=== PATIENT | female | born 1960 | race Caucasian/White ===

== ENCOUNTER 2024-12-20 19:21 | Emergency (ER) | payer MEDICARE, MEDICAID, SELFPAY ==
[2024-12-20] VITALS (15 sets, daily range): BP systolic 128–220; BP diastolic 46–107; PULSE 103–133; RESP 14–26; TEMP 38.5–39.8; O2SAT 95–100; BMI 34.7
--- NOTE | 2024-12-20 19:28 | XR_ITS ---
PROCEDURE INFORMATION: Exam: XR Chest Exam date and time: 12/20/2024 8:08 PM Age: 63 years old Clinical indication: Other: Sepsis TECHNIQUE: Imaging protocol: Radiologic exam of the chest. Views: 1 view. COMPARISON: No relevant prior studies available. FINDINGS: Lungs: Lung volumes are mildly diminished. No gradient increased interstitial markings are age-indeterminate without prior studies for comparison. The lungs appear clear. No focal areas of consolidation. Pleural spaces: No pleural effusions. Negative for pneumothorax. Heart/Mediastinum: There is mild pulmonary venous hypertension. The heart is borderline enlarged. Bones/joints: There is no evidence of acute fracture. IMPRESSION: 1. Borderline cardiomegaly and mild pulmonary venous hypertension. 2. Minor interstitial markings are age-indeterminate without prior studies for comparison. Correlate clinically. Can not exclude low-grade edema in the appropriate clinical setting. Otherwise
--- NOTE | 2024-12-20 19:30 | ECG_ITS ---
APPROVED REPORT Exam: Resting ECG HR:133 bpm ECG Measurements Heart Rate 133 AXES PA 147 P 64 QRSd 85 QRS 61 QT 286 T 55 QTc 364 Conclusion SINUS TACHYCARDIA ABNORMAL RHYTHM ECG UNCONFIRMED REPORT Electronically signed by : ESTELLA HUERTA, 12/21/2024 06:57:04
--- NOTE | 2024-12-20 19:35 | XR_ITS ---
PROCEDURE INFORMATION: Exam: XR Left Foot Exam date and time: 12/20/2024 8:08 PM Age: 63 years old Clinical indication: Other: Concern for osteo of great toe TECHNIQUE: Imaging protocol: Radiologic exam of the left foot. Views: 1 or 2 views. COMPARISON: No relevant prior studies available. FINDINGS: Bones/joints: There is no evidence of acute fracture or dislocation. Mild degenerative changes involve the 1st MTP joint. There is subtle loss of bone density involving the 5th distal phalanx which could reflect osteopenia but difficult to exclude osteomyelitis in the appropriate clinical setting. Prominent calcaneal spurring is present. Soft tissues: No significant soft tissue edema. No subcutaneous emphysema or radiopaque foreign bodies. Prominent vascular calcifications are present. IMPRESSION: 1. Subtle loss of bone density involving the 5th distal phalanx could reflect osteopenia but difficult to exclude osteomyelitis in the appropriate clinical setting. Correlate clinically. 2. No definite bony erosive change involving the great toe. Please note that this does not entirely exclude subtle osteomyelitis. Clinical correlation is advised.
[2024-12-20 19:42] LABS: Lactate Venous 1.6 mmol/L (0.4-2.0); VBG HCO3 29.2 mmol/L (23-30); VBG PH 7.35 mmol/L (7.31-7.41); VBG PO2 56.5 mmol/L (28-40)
[2024-12-20 19:45] LABS: VBG PCO2 54.4 mmol/L (35-51)
[2024-12-20 19:46] LABS: Microscopic, Urine URINE MICROSCOPIC (MICROSCOPIC)
[2024-12-20 19:54] LABS: Hematocrit 35.7 % (37.0-47.0); Hemoglobin 11.6 g/dL (12.2-16.2); Immature Granulocytes % 0.4 %; Mean Corpuscular HGB Conc 32.5 g/dL (31.8-35.4); Mean Corpuscular Hemoglobin 33.3 pg (27.0-31.2); Mean Corpuscular Volume 102.6 fl (81-99); Nucleated Red Blood Cells % 0 %; Platelet Count 169 K/mm3 (142-424); Red Blood Count 3.48 M/mm3 (4.20-5.40); Red Cell Distribution Width-SD 55.8 fL; White Blood Count 14.1 K/mm3 (4.8-10.8)
[2024-12-20 19:55] LABS: Bilirubin,Urine Negative (Negative); Color,Urine YELLOW (Yellow); Glucose,Urine (UA) Negative (Negative); Ketones,Urine Negative (Negative); Leukocyte Esterase,Urine 3+ (Negative); PH,Urine 6.5 (5.0-8.5); Protein,Urine 2+ (Negative); Specific Gravity, Urine 1.020 (1.005-1.030); Urobilinogen,Urine 0.2 EU/dl (0.2)
[2024-12-20 19:56] LABS: Chloride 96 mmol/L (98-107); Potassium 5.1 mmoL/L (3.5-5.1); Sodium 138 mmol/L (136-145)
[2024-12-20 19:58] LABS: Blood Urea Nitrogen 21 mg/dl (7-17); Creatinine Clearance Estimated 29 mL/min (50-200); Creatinine,Serum 2.90 mg/dl (0.52-1.04); Estimated Glomerular Filt Rate 16 ml/min (>60); GFR (African American) 20 ML/MIN (>60)
[2024-12-20 19:59] LABS: Alanine Aminotransferase 18 U/L (12-78); Alkaline Phosphatase 109 U/L (38-126); Aspartate Amino Transferase 39 U/L (14-36); Bilirubin,Total 1.0 mg/dl (0.2-1.3); Calcium 9.1 mg/dl (8.4-10.2); Creatine Kinase 90 U/L (30-135); Total Protein,Serum 8.2 g/dl (6.3-8.2)
[2024-12-20 20:00] LABS: INR 1.15 (0.9-1.1); Prothrombin Time 12.6 seconds (10.1-12.5)
[2024-12-20] MEDS: PIPERACILLIN/TAZO 4.5 GM in 0.9 % SODIUM CHLORIDE 100 ML IV (20:02)
--- OUTSIDE RECORDS SUMMARY | 2024-12-20 20:02 | XMS_ITS | Encounter Summary ---
Author Organization Healthcare Address [address] [place] [address] Care Team Providers Care Tick Inspector Name Role Phone Pcp, No Primary Care Provider Unavailabl Anjelica Bee LIFE INSURANCE SALES Unavailable Unavailable Jolynn Somers MD Unavailable Reason for Visit * Reason Comments Med Refill Encounter Details Date Type Department Care Team ([facility] Contact Info) Description 12/24/2023 Refill [facility] Nephrology, Bone & Mineral Metabolism [address], [address] [place] [address] Jolynn Somers MD [address] [place] [address] Social History Tobacco Use Types Packs/Day Years Used Date Smoking Tobacco: Former CAGE ASSESSMENT Answer Date Recorded Cage unable to access Not on file 12/18/2023 Cage max number of drinks Not on file 2023 Cage Beverages a week Not on file 12/18/2023 Have you ever felt you should CUT down on your d rinking? 0 12/18/2023 Have you been ANNOYED by people criticizing your drinking? 0 12/18/2023 Have you felt GUILTY about your drinking? 0 12/18/2023 Have you had a drink first t silvana in the morning (EYE-PROGRAM MGR) to steady your nerves or to get rid of a hangover? 0 12/18/2023 CAGE Questionnaire Score 0 024 Comments Unknown Sex and Gender Information Value Date Recorded Sex Assigned at Not on file Legal Sex Female 8:04 PM EDT Gender Identity Not on file Sexual Orientation Not on file documented as of this encounter Plan of Treatment Not on file documented as of this encounter Visit Diagnoses Not on filedocumented in this encounter Additional Health Concerns Infection Onset Date Last Indicated Resolved Time COVID 19 (Confirmed) 12/18/2023 12/18/2023 024 5:23 AM EDT Assessment Noted Time A Body Mass Index follow-up plan has been documented for the patient 12/20/2023 5:42 PM EDT documented as of this encounter Care Teams Tick Inspector Relationship Specialty Start Date End Date Pcp, No [address] [place] [address] PCP - General Family Medicine 08/08/22 Anjelica Fishman LPN [employer] [place] [address] TCM Nurse 12/22/23 01/21/24 Jolynn Somers MD [address] [place] [address] Referring Physician Nephrology 02/21/24 documented as of this encounter
--- OUTSIDE RECORDS SUMMARY | 2024-12-20 20:02 | XMS_ITS | Clinical Summary ---
[facility] Organization [facility] Address [address] [place] [address] Care Team Providers Care Transplant Nurse Practitioner Name Role Phone Sree Power MD Primary Care Provider [phone] Allergies No known active allergies Medications insulin detemir (LEVEMIR) 100 UNIT/ML injectionIndicat ions:Type 2 Diabetes Mellitus Inject 5 Units under the skin into the appropriate area as directed Daily. Indications: Type 2 Diabetes 3 Active metoprolol succinate XL (TOPROL-XL) 25 MG 24 hr tablet Take 25 mg by mouth Daily. Active ondansetron (ZOFRAN) 4 MG tablet Take 1 tablet by mouth Every 6 (Six) Hours As Needed for Nausea or Vomiting. 30 tablet 12/24/2020 3:54 PM EDT 1 Active furosemide (LASIX) 40 MG tablet Take 60 mg by mouth 2 (Two) Times a Day. Active insulin lispro (humaLOG) 100 UNIT/ML injection Inject 15 Units under the skin into the appropriate area as directed 2 (Two) Times a Day. Active sodium bicarbonate 650 MG tablet Take 650 mg by mouth 2 (Two) Times a Day. Active simethicone (MYLICON) 80 MG chewable tablet Chew 250 mg Every 6 (Six) Hours As Needed for Flatulence. Active collagenase 250 UNIT/GM ointmentIndicati ons:Dermal Ulcer,bilateral heels Apply 1 application topically to the appropriate area as directed Daily. Indications: Skin Ulcer, bilateral heels 3 Active calcium acetate (PHOS BINDER,) 667 MG capsule capsuleIndicatio ns:Hyperphosphat emia Take 1,334 mg by mouth 3 (Three) Times a Day. Indications: High Amount of Phosphate in the Blood 3 Active torsemide (DEMADEX) 100 MG tabletIndication s:Renal Disease Take 100 mg by mouth Daily. Indications: Kidney Disease 3 Active carvedilol (COREG) 25 MG tabletIndication s:Hypertension Take 25 mg by mouth 2 (Two) Times a Day With Meals. Indications: High Blood Pressure Disorder 3 Active amLODIPine (NORVASC) 5 MG tabletIndication s:Hypertension Take 5 mg by mouth Daily. Indications: High Blood Pressure Disorder 3 Active escitalopram (LEXAPRO) 10 MG tabletIndication s:Generalized Anxiety Disorder Take 10 mg by mouth Daily. Indications: Generalized Anxiety Disorder 3 Active clindamycin (CLEOCIN) 300 MG capsule Take 300 mg by mouth 3 (Three) Times a Day. 3 Active Active Problems Problem Noted Date Diagnosed Date E coli bacteremia 12/21/2020 Brain mass 12/17/2020 Type 2 diabetes mellitus 12/16/2020 Essential hypertension 12/16/2020 CKD (chronic kidney disease) 12/16/2020 Meningioma 12/16/2020 Overview (12/18/2020): Added automatically from request for surgery [id number] Social History Tobacco Use Types Packs/Day Years Used Date Smoking Tobacco: Former Smokeless Tobacco: Never OASIS D0700: Social Isolation Answer Da te Recorded Frequency of experiencing loneliness or isolatio n Never 10/28/2022 OASIS A1250: Transportation Answer Date Recorded Lack of Transportation (Medical) No 10/28/2022 Lack of Transportation (Non-Medical) No 10/28/2022 Patient Unable or Declines to Respond No 10/28/2022 OASIS B1300: Health Literacy Answer Morgan e Recorded Frequency of needing help to read materials from doctor or pharmacy Rarely 10/28/2022 Abuse Screen Answer Date Recorded Unsafe at Home or Work/School Not on file Feels Threatened by Someone? Not on file 02/2023 Does Anyone Keep You from Co ntacting Others or Doint Things Outside the Home? Not on file 02/03/2023 Physical Sign of Abuse Present Not on file 1 Housing Stability Answer Date Recorded Current Living Arrangements Not on file 01/24 Potentially Unsafe Housing Conditions Not on abhay e 02/03/2023 Family and Community Support Answer Morgan e Recorded Help with Day-to-Day Activities Not on file 02/03/2023 Lonely or Isolated Not on file 02/03/2023 Employment Answer Date Recorded Do you want help finding or keeping work or a jony b? Not on file 02/03/2023 Disabilities Answer Date Recorded Concentrating, Remembering, or Making Decisions Difficulty Not on file 02/03/2023 Doing Errands Independently Difficulty Not on fi le 02/03/2023 Education Answer Date Recorded Help with school or training? Not on file Preferred Language Not on file 02/03/2023 Comments Unknown Sex and Gender Information Value Date Recorded Sex Assigned at Not on file Legal Sex Female 12:36 PM EDT Gender Identity Not on file Sexual Orientation Not on file Last Filed Vital Signs Vital Sign Reading Time Taken Comments Blood Pressure 130/88 10/28/2022 3:30 PM EDT Pulse 62 10/28/2022 3:30 PM EDT Temperature 36.6 C (97.9 F) 10/28/2022 3:30 PM EDT Respiratory Rate 18 10/28/2022 3:30 PM EDT Oxygen Saturation 96% 10/28/2022 3:30 PM EDT Inhaled Oxygen Concentration - - Weight 66.7 kg (147 lb) 03/06/2021 7:29 AM EST Height 147.3 cm (4' 10 ) 12/16/2020 1:12 PM EDT Body Mass Index 30.72 12/16/2020 1:12 PM EDT Plan of Treatment Health Maintenance Due Date Last Done Comments Annual Gynecologic Pelvic an d Breast Exam 1961 MAMMOGRAM 2001 COLOGUARD 2006 COLON CANCER SCREENING 5 YEA R SIGMOIDOSCOPY 2006 COLONOSCOPY [address] CANCER SCREENING 2006 CT COLONOGRAPHY 2006 FECAL OCCULT BLOOD TEST 2006 FIT Testing (1 year) 2006 ZOSTER VACCINE (1 of 2) 12/31/2011 ANNUAL PHYSICAL 12/25/2020 Pneumococcal Vaccine 50+ (2 of 2 - PCV) 09/02/2022 09/02/2021, 02/15/2006 COVID-19 Vaccine (1 - 2023-2 5 season) 2023 INFLUENZA VACCINE 01/24/2025 TDAP/TD VACCINES (4 - Tdap) 09/12/202508/25, 02/15/2006, 07/04/1996 HEMOGLOBIN A1C Discontinued 12/18/2023, 06/24, 07/10/2022, Additional history exists HEPATITIS C SCREENING Completed 12/18/2023 Procedures Procedure Name Priority Date/Time Associated Diagnosis Comments HEMOGLOBIN A1C Routine 12/16/2020 3:23 PM EDT from Last 3 Months or Most Recently Relevant to Health Maintenance Results * (ABNORMAL) Hemoglobin A1c (12/16/2020 3:23 PM EDT) Hemoglobin A1C 11.30(H) 4.80 - 5.60 % 12/16/2020 4:51 PM EDT [facility] Blood Venipuncture / Unknown 12/16/2020 3:23 PM EDT 12/16/2020 4:28 PM EDT Narrative [facility] - 12/16/2020 4:51 PM EDT Hemoglobin A1C Ranges: Increased Risk for Diabetes 5.7% to 6.4% Diabetes >= 6.5% Diabetic Goal < 7.0% us Nevin Sandoval MD LAB BLOOD ORDERABLES Final Re sult [facility]
[address] [place] [address], from Last 3 Months or Most Recently Relevant to Health Maintenance Insurance MEDICARE A & B [employer] MEDICAID [facility] MEDICARE ADVANTAGE [id number] MEDICARE () Advance Directives * CPR (Attempt to Resuscitate) (Latest Code Status on File) Date Activated Date Inactivated Comments 09/11/2022 7:57 PM No physician s ignature needed for this code status. Mane as Signed. * CPR (Attempt to Resuscitate) Date Activated Date Inactivated Comments 12/16/2020 2:09 PM 12/24/2020 6:19 PM Question Answer Comments Code Status (Patient has no pulse and is not breathing): CPR (Attempt to Resuscitate) Medical Interventions (Patie nt has pulse or is breathing): Full Care Teams Transplant Nurse Practitioner Relationship Specialty Start Date End Date Sree Power MD [address] [place] [address] PCP - General Vascular Surgery 08/24/22
--- OUTSIDE RECORDS SUMMARY | 2024-12-20 20:02 | XMS_ITS | Encounter Summary ---
Author Organization [facility] Address [address] [place] [address] Care Team Providers Care Assignment Agent Name Role Phone Pcp, No Primary Care Provider UnavailAnjelica Kapadia LPN Unavailable Unavailable Jolynn Somers MD Unavailable Reason for Visit * Reason Comments Med Refill Encounter Details Date Type Department Care Team ([facility] st Contact Info) Description 06/16/2023 Refill [facility] Nephrology, Bone & Mineral Metabolism [address], [address] [place] [address] Willy Alcaraz PA [address] [place] [address] Social History Tobacco Use Types Packs/Day Years Used Date Smoking Tobacco: Former Comments Unknown Sex and Gender Information Value Date Recorded Sex Assigned at Not on file Legal Sex Female 8:04 PM EDT Gender Identity Not on file Sexual Orientation Not on file documented as of this encounter Miscellaneous Notes * Telephone Encounter - Olinda Mejias LPN - 06/16/2023 10:18 AM EST Dialysis patient. Patient needs to request refill from dialysis clinic and treating provider at dialysis facility. documented in this encounter Plan of Treatment Not on file documented as of this encounter Visit Diagnoses Not on filedocumented in this encounter Additional Health Concerns Infection Onset Date Last Indicated Resolved Time COVID-19 Rule-Out 12/18/2023 12/18/2023 12/18/2023 3:34 PM EDT COVID 19 (Confirmed) 12/18/2023 12/18/2023 024 5:23 AM EDT documented as of this encounter Care Teams Assignment Agent Relationship Specialty Start Date End Date Pcp, No [address] [place] [address] PCP - General Family Medicine 08/08/22 Anjelica Fishman LPN [employer] [place] [address] TCM Nurse 12/22/23 01/21/24 Jolynn Somers MD [address] [place] [address] Referring Physician Nephrology 02/21/24 documented as of this encounter
--- OUTSIDE RECORDS SUMMARY | 2024-12-20 20:02 | XMS_ITS | Encounter Summary ---
Author Organization Healthcare Address [address] [place] [address] Care Team Providers Care Baking Powder Mixer Name Role Phone Pcp, No Primary Care Provider Unavailabl Anjelica Bee SEMICONDUCTOR BONDER Unavailable Unavailable Jolynn Somers MD Unavailable Reason for Visit * Reason Comments Med Refill Encounter Details Date Type Department Care Team ([facility] st Contact Info) Description 01/11/2024 Refill [facility] Nephrology, Bone & Mineral Metabolism [address], [address] [place] [address] Jolynn Somers MD [address] [place] [address] Social History Tobacco Use Types [...] drink first t silvana in the morning (EYE-FLOOR SCRUBBER) to steady your nerves or to get rid of a hangover? 0 12/18/2023 CAGE Questionnaire Score 0 024 Comments Unknown Sex and Gender Information Value Date Recorded Sex Assigned at Not on file Legal Sex Female 8:04 PM EDT Gender Identity Not on file Sexual Orientation Not on file documented as of this encounter Miscellaneous Notes * Telephone Encounter - Kayla Telles RN - 01/11/2024 12:37 PM EDT Dialysis pt - meds managed by dialysis center documented in this encounter Plan of Treatment Not on file documented as of this encounter Visit Diagnoses Not on filedocumented in this encounter Additional Health Concerns Assessment Noted Time A Body Mass Index follow-up plan has been documented for the patient 12/20/2023 5:42 PM EDT documented as of this encounter Care Teams Baking Powder Mixer Relationship Specialty Start Date End Date Pcp, No [address] [place] [address] PCP - General Family Medicine 08/08/22 Anjelica Fishman LPN [employer] [place] [address] TCM Nurse 12/22/23 01/21/24 Jolynn Somers MD [address] [place] [address] Referring Physician Nephrology 02/21/24 documented as of this encounter
--- OUTSIDE RECORDS SUMMARY | 2024-12-20 20:02 | XMS_ITS ---
Author Organization [facility] Address [address] [place] [address] Care Team Providers Care Glue Bone Drier Name Role Phone Pcp, No Primary Care Provider Unavailabl Jolynn Llamas MD Unavailable Transplant Episode Kidney Candidate [facility] ([place], [place]) - JENNIFER Referred on 02/21/2024 Marked as Internal Hold on 03/29/2024 Reason: Patient Cancellation Kidney CoordinatorIvett Linares Fax: N/A Email: N/A Scores Score Value Updated Exceptions/Reas ons CPRA Not available EPTS (Calc) 47 12/20/2024 Care Team Name Role Phone Fax Email Ivett Linares Kidney Coordinator [phone] N/A N/A Jolynn Somers MD Referring Physician [phone] N/A Events Pre-Transplant Referred: 02/21/2024 Dialysis History Dialysis History Start End Type Comments Center 08/27/2022 In-center Hemodialysis MWF [facility] Dialysis [facility] Information Center Phone Fax Address [facility] [phone] [address] [facility] [address]
--- OUTSIDE RECORDS SUMMARY | 2024-12-20 20:02 | XMS_ITS | Encounter Summary ---
Author Organization [facility] Address [address] [place] [address] Care Team Providers Care Mgmt Consultant Name Role Phone Pcp, No Primary Care Provider Unavailabl Anjelica Bee LPN Unavailable Unavailable Jolynn Somers MD Unavailable Reason for Visit * Reason Comments Med Refill Encounter Details Date Type Department Care Team ([facility] st Contact Info) Description 08/14/2023 Refill [facility] Nephrology, Bone & Mineral Metabolism [address], [address] [place] [address] Jolynn Somers MD [address] [place] [address] Social History Tobacco Use Types Packs/Day Years Used Date Smoking Tobacco: Former Comments Unknown Sex and Gender Information Value Date Recorded Sex Assigned at Not on file Legal Sex Female 8:04 PM EDT Gender Identity Not on file Sexual Orientation Not on file documented as of this encounter Miscellaneous Notes * Telephone Encounter - Olinda Mejias LPN - 08/16/2023 8:24 AM EDT This is not a Nephrology patient and not seen in clinic. Will need to contact the dialysis clinic and request refill from treating provider. documented in this encounter Plan of Treatment Not on file documented as of this encounter Visit Diagnoses Not on filedocumented in this encounter Additional Health Concerns Infection Onset Date Last Indicated Resolved Time COVID-19 Rule-Out 12/18/2023 12/18/2023 12/18/2023 3:34 PM EDT COVID 19 (Confirmed) 12/18/2023 12/18/2023 024 5:23 AM EDT documented as of this encounter Care Teams Mgmt Consultant Relationship Specialty Start Date End Date Pcp, No [address] [place] [address] PCP - General Family Medicine 08/08/22 Anjelica Fishman LPN [employer] [place] [address] TCM Nurse 12/22/23 01/21/24 Jolynn Somers MD [address] [place] [address] Referring Physician Nephrology 02/21/24 documented as of this encounter
--- OUTSIDE RECORDS SUMMARY | 2024-12-20 20:02 | XMS_ITS | Encounter Summary ---
Author Organization [facility] Address [address] [place] [address] Care Team Providers Care Utility Operator Name Role Phone Pcp, No Primary Care Provider Unavailabl Anjelica Bee LPN Unavailable Unavailable Jolynn Somers MD Unavailable Reason for Visit * Reason Comments Med Refill Encounter Details Date Type Department Care Team ([facility] st Contact Info) Description 05/22/2023 Refill [facility] Nephrology, Bone & Mineral Metabolism [address], [address] [place] [address] Jolynn Somers MD [address] [place] [address] Social History Tobacco Use Types Packs/Day Years Used Date Smoking Tobacco: Former Comments Unknown Sex and Gender Information Value Date Recorded Sex Assigned at Not on file Legal Sex Female 8:04 PM EDT Gender Identity Not on file Sexual Orientation Not on file documented as of this encounter Miscellaneous Notes * Telephone Encounter - Olinda Mejias LPN - 05/24/2023 7:28 AM EST Patient is a dialysis patient seen at [facility]. Will need to request refills through Dialysis clinic. documented in this encounter Plan of Treatment Not on file documented as of this encounter Visit Diagnoses Not on filedocumented in this encounter Additional Health Concerns Infection Onset Date Last Indicated Resolved Time COVID-19 Rule-Out 12/18/2023 12/18/2023 12/18/2023 3:34 PM EDT COVID 19 (Confirmed) 12/18/2023 12/18/2023 024 5:23 AM EDT documented as of this encounter Care Teams Utility Operator Relationship Specialty Start Date End Date Pcp, No [address] [place] [address] PCP - General Family Medicine 08/08/22 Anjelica Fishman LPN [employer] [address] TCM Nurse 12/22/23 01/21/24 Jolynn Somers MD [address] [place] [address] Referring Physician Nephrology 02/21/24 documented as of this encounter
--- OUTSIDE RECORDS SUMMARY | 2024-12-20 20:02 | XMS_ITS | Clinical Summary ---
Author Organization [facility] Address [address] [place] [address] Care Team Providers Care Support Teacher Name Role Phone Pcp, No Primary Care Provider Unavailabl e Jolynn Somers MD Unavailable Allergies No known active allergies Medications amLODIPine (Norvasc) 5 MG tablet Take 1 tablet (5 mg) by mouth 1 (one) time each day. 30 tablet 11 12/02/2023 Active metOLazone (Zaroxolyn) 10 MG tablet Take 1 tablet by mouth once daily 30 tablet 01/21/2024 Active sevelamer carbonate (Renvela) 800 MG tablet Take 2 tablets (1,600 mg) by mouth 3 (three) times a day with meals. Swallow tablet whole; do not crush, break, or chew. 180 tablet 11 02/14/2024 5 Active Active Problems Problem Noted Date Diagnosed Date ESRD (end stage renal disease) 12/19/2023 Pneumonia due to COVID-19 virus 12/18/2023 Encounters Date Type Department Care Team Description 10/04/2024 Telephone [facility] [address] [facility] [[email or web address] [address] [place] [address] Ivett Linares Follow-up from Last 3 Months Family History Medical History Relation Name Comments Diabetes Father Heart Problem Father Aneurysm Mother Relation Name Status Comments Father Mother Social History Tobacco Use Types Packs/Day Years [...] 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 0 12/18/2023 CAGE Questionnaire Score 0 024 Comments Unknown Sex and Gender Information Value Date Recorded Sex Assigned at Not on file Legal Sex Female 8:04 PM EDT Gender Identity Not on file Sexual Orientation Not on file Last Filed Vital Signs Vital Sign Reading Time Taken Comments Blood Pressure 171/89 12/20/2023 5:07 PM EDT Pulse 81 12/20/2023 5:07 PM EDT Temperature 36.9 C (98.5 F) 12/20/2023 5:07 PM EDT Respiratory Rate 16 12/20/2023 5:07 PM EDT Oxygen Saturation 100% 12/20/2023 1:22 PM EDT Inhaled Oxygen Concentration - - Weight 75.1 kg (165 lb 9.1 oz) 12/18/2023 10:13 PM EDT Height 152.4 cm (5') 12/18/2023 10:13 PM EDT Body Mass Index 32.33 12/18/2023 10:13 PM EDT Plan of Treatment Health Maintenance Due Date Last Done Comments [facility]-Depression Screening 1960 [facility]-Medicare Annual Wellness (AWV) 1960 [facility]-/Child/Adol SDOH Screenings 1960 Diabetes: Dental Exam 12/31/1971 [facility]- SDOH Screenings 12/31/1979 [facility]-Adult SDOH Screenings 12/31/1979 [facility]-Pap Smear 1982 [facility]-Cervical Cancer Screening 12/31/1991 [facility]-HPV/Cotest 12/31/1991 CT Colonography 2006 Colonoscopy 2006 FIT-DNA 2006 FIT 2006 FOBT 2006 Sigmoidoscopy 2006 [facility]-Colorectal Cancer Screening 2006 [facility]-Breast Cancer Screening 12/31/2011 [facility]-Zoster Vaccines (1 of 2) 12/31/2011 [facility]-DTaP,Tdap,and Td Vaccine s (1 - Tdap) 09/14/2015 09/13/2015, 02/15/2006, 07/04/1996 [facility]-RSV Vaccine: 60+ Years o r (1 - Risk 60-74 years 1-dose series) 2021 [facility]-Pneumococcal Vaccine: 50 + Years (3 of 3 - PCV) 09/02/2022 09/02/2021, 02/15/2006 [id number] Vaccine ( - season) 2023 [facility]-Diabetes: Hemoglobin A1C 03/18/2024, 12/16/2020, 09/26/2015 [facility]-Influenza Vaccine (#1) 2024 [facility]-HIV Screening Completed 12/18/2023 [facility]-Obesity Intervention Completed 12/18/2023 [facility]-Hepatitis C Screening Completed 2023, 12/18/2023 HPV Vaccines Aged Out No longer eligi ble based on patient's age to complete this topic [facility]-HIB Vaccines Aged Out No longer e ligible based on patient's age to complete this topic [facility]-Hepatitis A Vaccines Aged Out No longer eligible based on patient's age to complete this topic [facility]-IPV Vaccines Aged Out No longer e ligible based on patient's age to complete this topic [facility]-Rotavirus Vaccines Aged Out No lo nger eligible based on patient's age to complete this topic Procedures Procedure Name Priority Date/Time Associated Diagnosis Comments ACUTE HEPATITIS PANEL Routine 12/20/2023 1:24 PM EDT ESRD (end stage renal disease) (CMS/HCC) ED HIV 1/2 ANTIBODY/ANTIGEN SCREEN WITH REFLEX TO HIV I/II DIFFERENTIATION STAT 12/18/2023 1:44 PM EDT HEMOGLOBIN A1C Add-On 12/18/2023 1:44 PM EDT from Last 3 Months or Most Recently Relevant to Health Maintenance Results * Hepatitis panel, acute (12/20/2023 1:24 PM EDT) Hepatitis B Surf Antigen Negative Negative 12/20/2023 4:50 PM EDT [facility] Hepatitis C Antibody Negative Negative 12/20/2023 4:50 PM EDT [facility] Hepatitis A Antibody IgM Negative Negative 12/20/2023 4:50 PM EDT [facility] Hepatitis B Core Antibody IgM Negative Negative 12/20/2023 4:50 PM EDT [facility] Blood Venous blood specimen / Unknown Venipuncture / Unknown 12/20/2023 1:24 PM EDT 12/20/2023 3:27 PM EDT Genesis Mcnair APRN LAB BLOOD ORDERABLES Final R esult Performing Organization Address City/[facility]/ZIP Co de Phone Number [facility] [address] [place] [address] * ED HIV 1/2 Antibody/Antigen Screen w/Reflex to HIV 1/2 Differentiation (12/18/2023 1:44 PM EDT) Pathologist [facility] HIV 1 & 2 Antibody/Antigen Screen Non Reactive Non Reactive 12/18/2023 2:50 PM EDT [facility] Comment:Screening for HIV 1 & 2 antibodies, and P24 antigen is NONREACTIVE. No confirmatory testing is required. Blood Venous blood specimen / Unknown Venipuncture / Unknown 12/18/2023 1:44 PM EDT 12/18/2023 2:09 PM EDT Ryne Nix MD LAB BLOOD ORDERABLES Final Res ult Performing Organization Address City/[facility]/ZIP Co de Phone Number [facility] [address] [place] [address] * (ABNORMAL) Hemoglobin A1c (12/18/2023 1:44 PM EDT) Pathologist [facility] Hemoglobin A1c 7.3(H) <5.7 % 12/18/2023 10:43 PM EDT [facility] Blood Venous blood specimen / Unknown Venipuncture / Unknown 12/18/2023 1:44 PM EDT 12/18/2023 1:49 PM EDT Narrative [facility] - 12/18/2023 10:43 PM EDT HA1C Interpretive Data: Diagnosis of Diabetes: Diabetic > or = 6.5% Pre-diabetic 5.7 to 6.4% Non-diabetic < or = 5.6% Glycemic Targets for Type I and Type II Diabetics: Non- Adults <7.0% Adults <6.0% Children and Adolescents <7.5% Source: [place] [employer]. Standards of medical care in diabetes,2017. Diabetes Care.2017:40 (suppl 1):S1-S135. HbA1c assay performed by an ion-exchange chromatography method that is certified traceable to the DCCT. Mahesh Gomez MD LAB BLOOD ORDERABLES Final Resu lt [facility] [address] [place] [phone] from Last 3 Months or Most Recently Relevant to Health Maintenance Insurance [employer] MEDICARE [facility] MEDICAID MEDICARE Care Teams Support Teacher Relationship Specialty Start Date End Date Pcp, No [address] [place] [address] PCP - General Family Medicine 08/08/22 Jolynn Somers MD [address] [place] [address] Referring Physician Nephrology 02/21/24
--- OUTSIDE RECORDS SUMMARY | 2024-12-20 20:02 | XMS_ITS | Encounter Summary ---
Author Organization Healthcare Address [address] 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
[2024-12-20 20:04] LABS: C-Reactive Protein 61.6 mg/L (0-4); Glucose 402 mg/dl (74-100)
--- NOTE | 2024-12-20 20:04 | PC.NURSE ---
critical called from lab, glucose 402. notified
[2024-12-20 20:06] LABS: Adenovirus,PCR Not Detected (NotDetected); Chlamydophila Pneumoniae, PCR Not Detected (NotDetected); Coronavirus 19, PCR Not Detected (NotDetected); Coronovirus HKU1,PCR Not Detected (NotDetected); Influenza A, PCR Not Detected (NotDetected); Influenza AH1, 2009 Not Detected (NotDetected); Influenza AH1, PCR Not Detected (NotDetected); Influenza AH3,PCR Not Detected (NotDetected); Influenza B, PCR Not Detected (NotDetected); Mycoplasma Pneumoniae, PCR Not Detected (NotDetected); Parainfluenza 1, PCR Not Detected (NotDetected); Parainfluenza 2, PCR Not Detected (NotDetected); Parainfluenza 3, PCR Not Detected (NotDetected); Parainfluenza 4, PCR Not Detected (NotDetected)
[2024-12-20] MEDS: VANCOMYCIN HCL 2,000 MG in 0.9 % SODIUM CHLORIDE 250 ML 125 MG IV (20:06)
[2024-12-20 20:10] LABS: Troponin I 0.02 ng/ml (0.00-0.034)
[2024-12-20] MEDS: ONDANSETRON 4MG/2ML VIAL 4 MG IV (20:11)
[2024-12-20] MEDS: ACETAMINOPHEN 1,000MG/100ML VIAL 1000 MG IV (20:12)
[2024-12-20 20:23] LABS: Acetone, Serum (Rapid) None Detected (None Detect); RBC Morphology Normal; Total Cells Counted 100
[2024-12-20 20:24] LABS: Albumin Level 4.3 g/dl (3.5-5.0); Albumin/Globulin Ratio 1.1 (1.1-1.8); Anion Gap 17.1 mEq/L (5-15); Carbon Dioxide 30 mmol/L (22.0-30.0); Globulin 3.9 g/dL (1.3-3.2)
[2024-12-20 20:48] LABS: Bacteria,Urine 4+ /lpf; WBC,Urine TNTC #/hpf (0-3)
[2024-12-20] MEDS: VANCOMYCIN CONSULT REQUEST 1 EACH NOTAPPLIC (21:07)
[2024-12-20 21:17] LABS: Hepatitis C Ab Qual. W/ RFX NEGATIVE (Negative)
--- NOTE | 2024-12-20 23:03 | HMH.EDGENADL ---
Discharge Plan Referrals Follow up/Referrals: Provider,Referral, [Primary Care Provider, Medical] - See instructions Clinical Impressions Clinical Impression: Acute encephalopathy, Acute hypoxemic respiratory failure, ESRD on dialysis, Severe sepsis, Volume overload Stand Alone Forms Stand Alone Forms: Transfer Record - ED Print Language Print Language: Hungarian Discharge ED Provider: Jemal Greene Adult HPI General Chief complaint: Altered Mental Status Stated complaint: Altered Mental Status Time Seen by Provider: 12/20/24 19:25 Mode of Arrival: EMS Source of Information: Patient and EMS Description of Symptoms (Recalled from ER Triage Doc. by RN): Pt in by [facility] for ALOC after dialysis this date. Pt family states she was A/O and normal when they seen her at noon this date. Per EMS pt had 3 L removed this date. Pt currently denies any pain, pt is on 15 LPM NRB. History of Present Illness HPI narrative: Please see MDM for the full history Related Data Allergies Allergy/AdvReac Type Severity Reaction Status Date / Time No Known Allergies Allergy Unverified 04/13/17 14:14 [facility] Disclaimer: The information contained in this section may have been updated after the patient was seen, as this information can be updated by other users. Social History Smoking Status: Smoker, status unknown alcohol intake: former current occupational status: unemployed Travel in the last 8 weeks?: None ROS Obtained: Yes Systems reviewed as appropriate & no additional complaints except as documented Physical Exam General General appearance: other (See MDM) Respiratory Respiratory exam: Present other (See MDM) Cardiovascular Cardiovascular exam: Present other (See MDM) Neurological Exam Neurological exam: Present other (See MDM) Medical Decision Making Medical Records Medical records reviewed: Yes I reviewed the patient's medical records. Screening: Per USPSTF and CDC recommendations, given the prevalence of disease in our region, it is our hospital?s policy to screen for HIV and viral Hepatitis for all patients aged 18 and over and those with ongoing risk factors. Sean Inquiry Pt receiving controlled substance: No Sean was queried for this patient: No Vital Signs: 12/20/24 19:43 12/20/24 19:48 12/20/24 19:57 Temperature 103.5 F H 103.3 F H 103.6 F H Temperature Source Core Core Pulse Rate 133 H Respiratory Rate 26 H 25 H Blood Pressure 220/93 H 149/107 H Blood Pressure [Right Arm] 220/93 H Blood Pressure Mean 121 Blood Pressure Mean [Right Arm] 135 Blood Pressure Source Blood Pressure Source [Right Arm] Automatic Cuff Blood Pressure Position 02 Sat by Pulse Oximetry 95 99 Oxygen Delivery Method Non-Rebreather Nasal Cannula Oxygen Flow Rate (LPM) 15 4 12/20/24 20:02 12/20/24 20:16 12/20/24 20:23 Temperature 103.6 F H 103.5 F H 103.3 F H Temperature Source Core Pulse Rate 132 H 127 H 120 H Respiratory Rate Blood Pressure 218/101 H 188/85 H 202/72 H Blood Pressure [Right Arm] Blood Pressure Mean 140 119 121 Blood Pressure Mean [Right Arm] Blood Pressure Source Blood Pressure Source [Right Arm] Blood Pressure Position 02 Sat by Pulse Oximetry 100 95 95 Oxygen Delivery Method Nasal Cannula Nasal Cannula Nasal Cannula Oxygen Flow Rate (LPM) 4 4 4 12/20/24 21:00 12/20/24 21:15 12/20/24 21:30 Temperature 102.7 F H 102.6 F H 102.4 F H Temperature Source Pulse Rate 117 H 118 H 115 H Respiratory Rate Blood Pressure 136/53 L Blood Pressure [Right Arm] Blood Pressure Mean Blood Pressure Mean [Right Arm] Blood Pressure Source Arterial Line Blood Pressure Source [Right Arm] Blood Pressure Position Sitting 02 Sat by Pulse Oximetry 97 95 96 Oxygen Delivery Method Oxygen Flow Rate (LPM) 12/20/24 22:58 12/20/24 23:27 Temperature 101.5 F H 101.5 F H Temperature Source Core Core Pulse Rate 107 H 103 H Respiratory Rate 16 14 Blood Pressure 145/57 H 141/58 H Blood Pressure [Right Arm] Blood Pressure Mean Blood Pressure Mean [Right Arm] Blood Pressure Source Arterial Line Arterial Line Blood Pressure Source [Right Arm] Blood Pressure Position Sitting Sitting 02 Sat by Pulse Oximetry 96 95 Oxygen Delivery Method Nasal Cannula Nasal Cannula Oxygen Flow Rate (LPM) 4 4 Lab Data Lab Results 12/20/24 19:30: WBC 14.1 H, RBC 3.48 L, Hgb 11.6 L, Hct 35.7 L, MCV 102.6 H, MCH 33.3 H, MCHC 32.5, RDW 14.7, Plt Count 169, MPV 11.3 H, Neut % (Auto) 92.1 H, Lymph % (Auto) 3.6 L, [place] % (Auto) 3.3, Eos % (Auto) 0.2, Baso % (Auto) 0.4, Neut # (Auto) 13.0 H, Lymph # (Auto) 0.5 L, [place] # (Auto) 0.5, Eos # (Auto) 0.0, Baso # (Auto) 0.1, Total Counted 100, Neutrophils % (Manual) 90 H, Lymphocytes % (Manual) 6 L, Monocytes % (Manual) 4, Platelet Estimate Normal, RBC Morphology Normal, ESR 95 H, PT 12.6 H, INR 1.15 H, VBG pH 7.35, VBG pCO2 54.4 H, VBG pO2 56.5 H, VBG HCO3 29.2, VBG Total CO2 30.8 H, VBG O2 Saturation 86.0 H, VBG Base Excess 3.5 H, VBG Lactic Acid 1.6, Sodium 138, Potassium 5.1, Chloride 96 L, Carbon Dioxide 30, Anion Gap 17.1 H, BUN 21 H, Creatinine 2.90 H, Estimated Creat Clear 29, Estimated GFR 16 L*, Est GFR ( Amer) 20 L, Glucose 402 H*, Lactate 1.3, Calcium 9.1, Total Bilirubin 1.0, AST 39 H, ALT 18, Alkaline Phosphatase 109, Total Creatine Kinase 90, Troponin I 0.02, C-Reactive Protein 61.6 H, Total Protein 8.2, Albumin 4.3, Globulin 3.9 H, Albumin/Globulin Ratio 1.1, Acetone Level None detected, HCV Ab ARMEN w/Rflx PCR Qn Negative, HIV Ag/Ab Combo Qual Negative 12/20/24 19:40: Urine Color Yellow, Urine Appearance Cloudy, Urine pH 6.5, Ur Specific [place] 1.020, Urine Protein 2+ A, Urine Glucose (UA) Negative, Urine Ketones Negative, Urine Blood 1+ A, Urine Nitrate Negative, Urine Bilirubin Negative, Urine Urobilinogen 0.2, Ur Leukocyte Esterase 3+ A, Urine WBC Tntc, Urine Bacteria 4+, Fatty Casts 12/20/24 19:55: Chlamy pneumoniae PCR Not detected, Adenovirus (PCR) Not detected, B. pertussis DNA (PCR) Not detected, Coronavirus OC43 (PCR) Not detected, Coronavirus HKU1 (PCR) Not detected, Coronavirus 229E (PCR) Not detected, SARS-CoV-2 (PCR) Not detected, Coronavirus NL63 (PCR) Not detected, Human Metapneumovir PCR Not detected, Influenza A (H1) PCR Not detected, Influ A (H1N1/09) PCR Not detected, Influenza A (H3) PCR Not detected, Influenza Type A (PCR) Not detected, Influenza Type B (PCR) Not detected, M. pneumoniae (PCR) Not detected, Parainfluenza 1 (PCR) Not detected, Parainfluenza 2 (PCR) Not detected, Parainfluenza 3 (PCR) Not detected, Parainfluenza 4 (PCR) Not detected, RSV (PCR) Not detected, Entero/Rhino (PCR) Not detected 12/20/24 22:57: Troponin I 0.07 H 12/20/24 19:30 12/20/24 19:30 Orders (Tests/Meds): ED MEDICATIONS Generic Name Dose Route Start Last Admin Trade Name Freq PRN Reason Stop Dose Admin Miscellaneous 1 each 12/20/24 19:30 12/20/24 21:07 Vancomycin Consult Request NOTAPPLIC 01/19/25 19:29 1 each CONSULT PHARMACY LIANET Administration Discontinued Medications Generic Name Dose Route Start Last Admin Trade Name Freq PRN Reason Stop Dose Admin Acetaminophen 1,000 mg 12/20/24 20:07 12/20/24 20:12 Acetaminophen 1,000mg/100ml Vial IV 12/20/24 20:08 1,000 mg ONCE ONE Administration Piperacillin Sod/Tazobactam 100 mls @ 200 mls/hr 12/20/24 19:28 12/20/24 20:13 Sod 4.5 gm/ Sodium Chloride IV 12/20/24 19:57 Not Given ONCE ONE Vancomycin HCl 2,000 mg/ 250 mls @ 125 mls/hr 12/20/24 19:45 12/20/24 22:09 Sodium Chloride IV 12/20/24 21:44 Infused ONCE ONE Infusion Piperacillin Sod/Tazobactam 100 mls @ 200 mls/hr 12/20/24 19:48 12/20/24 20:16 Sod 4.5 gm/ Sodium Chloride IV 12/20/24 20:17 Infused ONCE ONE Infusion Ondansetron HCl 4 mg 12/20/24 20:04 12/20/24 20:11 Ondansetron 4mg/2ml Vial IV 12/20/24 20:05 4 mg ONCE ONE Administration ORDERS Category Date Time Status CXR --portable [XR chest portable] Stat Exams 12/20/24 19:28 Completed Foot XR left 2 views [XR foot LT 2V] Stat Exams 12/20/24 19:35 Completed POCUS Point of Care (ER Only) Stat Exams 12/20/24 19:34 Completed Acetone, Serum (Rapid) Stat Lab 12/20/24 19:30 Completed CBC w/Auto Diff [Complete Blood Count Auto Diff] Stat Lab 12/20/24 19:30 Completed CRP [C-Reactive Protein] Stat Lab 12/20/24 19:30 Completed Comprehensive Metabolic Panel Stat Lab 12/20/24 19:30 Completed Creatine Kinase Stat Lab 12/20/24 19:30 Completed ESR [Erythrocyte Sedimentation Rate] Stat Lab 12/20/24 19:30 Completed Full Resp Panel w/COVID ([facility]) Routine Lab 12/20/24 19:55 Completed HIV Combo Stat Lab 12/20/24 19:30 Completed Hepatitis C Ab Qual. W/ RFX Stat Lab 12/20/24 19:30 Completed Lactic Acid Stat Lab 12/20/24 19:30 Completed Prothrombin Time INR Stat Lab 12/20/24 19:30 Completed Troponin I Q3H Lab 12/20/24 22:57 Completed Troponin I Q3H Lab 12/21/24 01:45 Ordered Troponin I Stat Lab 12/20/24 19:30 Completed Urinalysis and Microscopic Stat Lab 12/20/24 19:40 Completed Blood Culture Stat Micro 12/20/24 19:30 Ordered Urine Culture Stat Micro 12/20/24 19:40 Received VBG [Venous Blood Gas] Stat RT 12/20/24 19:30 Completed ECG Data Tracing #1: I reviewed this ECG and interpreted as documented below: EKG personally interpreted by me demonstrates sinus tachycardia with a rate of 133 bpm, normal axis, no GA prolongation, narrow QRS, no QTc prolongation. No ST elevation or depression. No overt signs of ischemia or arrhythmia Medical Decision Narrative: This is a 63-year-old female patient, with past medical history of hypertension, diabetes, and end-stage renal disease on dialysis Wednesday and Wednesday, who is presenting to the emergency department today for evaluation of encephalopathy. The patient presents with her granddaughter who is her power of erisa attorney. She states that the patient lives with her boyfriend and that she herself checks on her grandmother multiple times per week. Today her grandmother went to dialysis this morning and returned home and when she went to check on her grandmother she found that she was encephalopathic and was minimally responsive. She states that she checked her temperature at home and found that she had a fever and she called EMS for further evaluation. According to the granddaughter the patient is not had any recent infectious symptoms and has been acting normally throughout the duration of this week up until the time that she found her like this today. On initial evaluation the patient she was tachycardic with a heart rate of 130 to 140 bpm. She was profoundly hypertensive with a blood pressure of 250/90. This pressure was somewhat questionable as we could not get a cuff to adequately detect a pressure around her brachial region and had to use a wrist pressure. The patient had diminished breath sounds bilaterally. She did seem to have increased work of breathing, and arrived on a nonrebreather. Abdomen was soft and nontender. She was alert and oriented to self only. She was toxic appearing and her temperature was 103 ?F. Additionally, the patient does have wounds on her toes and feet that look necrotic which does raise suspicion that she could be experiencing this severe sepsis from osteomyelitis. We promptly moved to the patient to a critical resuscitation room. I performed a bedside POCUS assessment and found that the patient had a grossly normal ejection fraction and she did have B-lines present in her bilateral lung dent, indicative of pulmonary edema. At this time I did consider diagnosis of flash pulmonary edema as well as additional diagnoses of sepsis, urinary tract infection, pneumonia, reactive airway disease, electrolyte derangement, among others. At this point we administered IV Tylenol to the patient. I then placed a right radial arterial line. After placement of the arterial line was found her pressure differential was quite significant and her blood pressure was 170/80. I did not feel that this clinical picture was consistent with flash pulmonary edema, but rather more so consistent with volume overload. The patient's family does not know her dry weight and they do not know if dialysis pulled off fluid today so it is unclear as to whether she is truly volume up from her baseline. We promptly recognized her presentation of sepsis given that she was tachycardic and febrile. I specifically did not administer the sepsis fluid order set to this patient as she appeared volume up on exam and hypertensive and she is oliguric at baseline and dialysis dependent so I do feel that fluids can significantly worsen her clinical picture. We did however administer vancomycin dosed by pharmacy as well as 4.5 g of Zosyn. We proceeded with hematologic labs as well as a chest x-ray. Labs included blood cultures, inflammatory markers, urinalysis, as well as workup for DKA and an EKG Please see EKG interpretation above. Overall demonstrates sinus tachycardia with no evidence of ischemia. Labs did result and were personally interpreted by me. Labs are significant for a leukocytosis of 14, macrocytic anemia. VBG shows a normal pH with an elevated pCO2. She is hyperglycemic but does not have any biochemical evidence of diabetic ketoacidosis. Urine does show 3+ leukocyte esterase as well as 4+ bacteria. No nitrates. Urinary source could certainly be the cause of her presentation of sepsis. Chest x-ray was personally turbid by me and demonstrates fluid in the fissures as well as pulmonary vascular congestion consistent with pulmonary edema. The patient's foot x-ray was interpreted by radiology and demonstrates findings of osteopenia without a definite lytic lesion to suggest osteomyelitis. They do note that this is not an optimal study to evaluate for osteomyelitis After administration of Tylenol and antibiotics the patient had a rather remarkable turnaround in her clinical picture. Her blood pressure stabilized in the 130s to 140s systolic. Her mental status has improved and she is now alert and oriented x 3. She is appropriately interactive and her work of breathing is also improved. She has now on 4 L nasal cannula. Due to the fact that this patient is currently septic and does not necessitate admission and also has a necessity for dialysis 3 times weekly, we are unable to admit her to our hospital as we do not have a dialysis unit. I have placed a call to the [facility] for transfer for higher level of care. I have received a phone call back from the [facility] [place] from Dr. Keven Alas who has graciously agreed to accept the patient for transfer to their hospital for admission Procedures Arterial Line Time Out Performed: Yes Size (Gauge): 20 Technique Used: guide wire technique Post-Procedure: line sutured into place and dry sterile dressing placed Patient Tolerated Procedure: well Complications: none Site: right Additional Comments: Sterile technique used throughout entirety of procedure. Critical Care Critical Care Time Critical Care Time: Yes Attestation: On 12/20/24, the high probability of a clinically significant, sudden or life threatening deterioration of the following system(s) respiratory, circulatory required my full and direct attention, intervention and personal management. The time I documented below is in addition to time spent performing reported procedures but includes the following listed in this critical care notation. Total Time Total Critical Care Time: 90
[2024-12-20 23:29] LABS: Troponin I 0.07 ng/ml (0.00-0.034)
[2024-12-21] VITALS: BP 131/51; PULSE 104; TEMP 38.4; O2SAT 98
[2024-12-21 00:30] VITALS: BP 134/53; PULSE 101; TEMP 38.4; O2SAT 98
[2024-12-21 01:00] VITALS: BP 130/55; PULSE 106; TEMP 38.2; O2SAT 98
[2024-12-21 02:14] LABS: Troponin I 0.07 ng/ml (0.00-0.034)
--- NOTE | 2024-12-21 02:41 | PC.NURSE ---
arterial line removed per MD verbal order.
[2024-12-21 04:09] VITALS: BP 179/91; PULSE 102; RESP 14; TEMP 37.9; O2SAT 95
[2024-12-21 06:24] LABS: Acinetobacter calcoaceticus-ba Not Detected; Bacteroides fragilis Not Detected; Candida auris Not Detected; Candida glabrata Not Detected; Enterobacterales Not Detected; Enterococcus faecalis Not Detected; Enterococcus faecium Not Detected; Klebsiella aerogenes Not Detected; Klebsiella pneumoniae grp Not Detected; Proteus spp. Not Detected; Salmonella spp. Not Detected; Serratia marcescens Not Detected; Staphylococcus epidermidis Not Detected; Staphylococcus lugdunensis Not Detected; Staphylococcus spp. Not Detected; Stenotrophomonas maltophilia Not Detected; Streptococcus agalactiae(GrpB) Detected; Streptococcus pyogenes Group A Not Detected; Streptococcus spp. Detected
--- NOTE | 2024-12-21 06:37 | PC.NURSE ---
blood culture results called to HARIKA Francisco at [facility].
--- NOTE | 2024-12-21 10:57 | PC.NURSE ---
Blood culture results faxed to [place].
--- NOTE | 2024-12-23 08:24 | PC.NURSE ---
prelim blood culture results faxed to [facility] as the pt was transferred there.
--- NOTE | 2024-12-24 19:39 | PC.NURSE ---
Called [facility] w/ prelim blood cx results.
--- NOTE | 2024-12-27 08:41 | PC.NURSE ---
final blood culture faxed to [facility] ER-- as the pt was transfered there.
[2024-12-31 09:28] LABS: POC Glucose,Bedside 361 gm/dL (70-110)
== END 2024-12-21 04:11 | disposition critical access hospital (66) ==
PROVIDERS: Emergency Provider Student in an Organized Health Care Education/Training Program
DX: A41.89 Other specified sepsis (principal); R65.20 Severe sepsis without septic shock; J96.01 Acute respiratory failure with hypoxia; R00.0 Tachycardia, unspecified; G93.49 Other encephalopathy; E87.70 Fluid overload, unspecified; N18.6 End stage renal disease; E11.65 Type 2 diabetes mellitus with hyperglycemia; Z99.2 Dependence on renal dialysis; I12.0 Hypertensive chronic kidney disease with stage 5 chronic kidney disease or end stage renal disease
CPT/HCPCS: 0223U; 51702; 71045; 73620; 80053; 81001; 82009; 82550; 82803; 82962; 83605; 84484; 85007; 85025; 85027; 85610; 85651; 86140; 86803; 87040; 87086; 87154; 87186; 87389; 93005; 96365; 96375; 99285; 99291; J0131; J2405; J2543; J3373; J7050